=== PATIENT | male | born 1945 | race Caucasian/White ===

== ENCOUNTER → 2022-03-14 | Outpatient (CLI) | payer MEDICARE, OTHER | END | disposition home or self-care (01) | LOC: RESCLI 15:37 | PROVIDERS: ATTEND Internal Medicine Nephrology | DX: K50.919 Crohn's disease, unspecified, with unspecified complications (principal); E53.8 Deficiency of other specified B group vitamins; E03.9 Hypothyroidism, unspecified; E55.9 Vitamin D deficiency, unspecified; D68.9 Coagulation defect, unspecified; Z79.899 Other long term (current) drug therapy ==

== ENCOUNTER → 2023-02-21 | Outpatient (CLI) | payer MEDICARE, OTHER | END | disposition home or self-care (01) | LOC: RESCLI 01:32 | PROVIDERS: ATTEND Family Medicine | DX: E03.9 Hypothyroidism, unspecified (principal); K50.919 Crohn's disease, unspecified, with unspecified complications; D68.9 Coagulation defect, unspecified; E55.9 Vitamin D deficiency, unspecified; Z98.890 Other specified postprocedural states; R01.1 Cardiac murmur, unspecified; Z82.49 Family history of ischemic heart disease and other diseases of the circulatory system; Z79.899 Other long term (current) drug therapy; Z79.01 Long term (current) use of anticoagulants ==

== ENCOUNTER → 2024-02-15 | Outpatient (CLI) | payer MEDICARE, OTHER | END | disposition home or self-care (01) | LOC: RESCLI 13:59 | PROVIDERS: ATTEND Family Medicine | DX: E03.9 Hypothyroidism, unspecified (principal); E55.9 Vitamin D deficiency, unspecified; D68.9 Coagulation defect, unspecified; K50.919 Crohn's disease, unspecified, with unspecified complications; I48.91 Unspecified atrial fibrillation; E61.1 Iron deficiency; E53.8 Deficiency of other specified B group vitamins; R60.9 Edema, unspecified; Z82.49 Family history of ischemic heart disease and other diseases of the circulatory system; Z79.899 Other long term (current) drug therapy ==

== ENCOUNTER → 2025-02-04 | Outpatient (CLI) | payer MEDICARE, OTHER | END | disposition home or self-care (01) | LOC: RESCLI 02:34 | PROVIDERS: ATTEND Internal Medicine | DX: I48.91 Unspecified atrial fibrillation (principal); E53.8 Deficiency of other specified B group vitamins; R60.9 Edema, unspecified; E61.1 Iron deficiency; E03.9 Hypothyroidism, unspecified; E55.9 Vitamin D deficiency, unspecified; Z79.899 Other long term (current) drug therapy; Z98.890 Other specified postprocedural states ==